=== PATIENT | male | born 2000 | race Caucasian/White ===

== ENCOUNTER 2020-06-30 06:55 | Outpatient (CLI) | payer BC ==
[~2020-06-30] VITALS: Ht 170.2 cm; Wt 79.5 kg
[2020-06-30] MEDS ORDERED: FLUT9.9S NS (13:24)
[2020-06-30] MEDS ORDERED: CETI10TA49 PO (13:24)
[2020-07-02] MEDS ORDERED: ACHD5005 PO (10:05)
== END 2020-06-30 13:53 | disposition home or self-care (01) ==
LOC: PREOP 06:55
PROVIDERS: ATTEND Surgery
DX: Z01.812 Encounter for preprocedural laboratory examination (principal); K40.90 Unilateral inguinal hernia, without obstruction or gangrene, not specified as recurrent

== ENCOUNTER 2020-07-02 07:03 | Day surgery (SDC) | payer BC ==
[~2020-07-02] VITALS: Ht 170.2 cm; Wt 79.5 kg
[2020-07-02] VITALS (12 sets, daily range): BP systolic 96–123; BP diastolic 43–87
[~2020-07-02 07:03] MED LIST: CETI10TA49 PO; FLUT9.9S NS
[2020-07-02] MEDS ORDERED: fentaNYL INJ 100 MCG/2 ML AMP ONE (07:10)
[2020-07-02] MEDS ORDERED: MIDAZOLAM 2 MG/2 ML (VERSED) VIAL ONE (07:11)
[2020-07-02] MEDS ORDERED: ceFAZolin 2 GM IV Premixed 50 ML IV ONE (07:15)
[2020-07-02] MEDS ORDERED: LIDOCAINE/EPI 1%-1:100,000 (XYLOCAINE) 20ML ONE (07:17)
[2020-07-02] MEDS: LACTATED RINGERS 1,000 ML IV PRN ×2 (07:46→09:05)
--- NOTE | 2020-07-02 08:22 | Progress Note-Pre Operative ---
Pre-Operative Progress Note H&P Reviewed The H&P was reviewed, patient examined and no changes noted. Time Seen by Provider: 08:14 Date H&P Reviewed: Jul 02, 2020 Time H&P Reviewed: 08:14 Pre-Operative Diagnosis: right inguinal hernia DAFNE HILL DO Jul 02, 2020 08:22
[2020-07-02] MEDS ORDERED: LIDOCAINE PF 2% 5 ML (XYLOCAINE) VIAL ONE (09:55)
[2020-07-02] MEDS ORDERED: SEVOFLURANE (ULTANE) 15 ML INHAL SOLN ONE ×3 (09:55→09:56)
[2020-07-02] MEDS ORDERED: NEOSTIGMINE 3 MG/3 ML VIAL ONE (09:55)
[2020-07-02] MEDS ORDERED: GLYCOPYRROLATE 0.2 MG/ML (ROBINUL) 2 ML VIAL ONE (09:55)
[2020-07-02] MEDS ORDERED: ONDANSETRON 4 MG/2 ML (SDV) Z0FRAN ONE (09:55)
[2020-07-02] MEDS ORDERED: ROCURONIUM 10 MG/ML 5 ML SYRINGE IV ONE (09:55)
[2020-07-02] MEDS ORDERED: proPOfol 200 MG/20 ML (DIPRIVAN) VIAL IV ONE (09:55)
[2020-07-02] MEDS ORDERED: HYDROmorphone 2 MG/ML VIAL (DILAUDID) ONE (09:56)
--- NOTE | 2020-07-02 10:04 | Progress Note-Post Operative ---
Post-Operative Progess Note Surgeon (s)/Channel Rougher (s) Surgeon DAFNE HILL DO Channel Rougher: Liz Pre-Operative Diagnosis right inguinal hernia Post-Operative Diagnosis same -indirect with small direct component Procedure & Operative Findings Date of Procedure 07/02/20 Procedure Performed/Findings After informed consent was obtained, the patient was brought to the operating room and placed on the operating table in a supine position. He was sterilely prepped and draped in a normal fashion. Local lidocaine was used to infiltrate the skin above the umbilicus. I made an incision with #11 blade, carried down to the skin into subcutaneous tissue and then deepened down the subcutaneous tissue with Bovie electrocautery down to the fascia. Fascia was incised with Bovie electrocautery and bluntly entered the abdomen, swept a finger around, placed 0 Vicryl [id number] suture and placed limited trocar port under direct visualization. Created pneumoperitoneum, able to visualize the hernia and took a picture of this and then placed two 8 mm ports about 10 cm on either side of the midline port using a local lidocaine, 11 blade for stab incision and then advanced the robotic port under direct visualization. Once this was in, I then placed the patient in Trendelenburg and then placed the working instruments, the fenestrated bipolar and the scissors. Looked on the right side and saw an indirect hernia with possibly small direct hernia defect. Pt also noted to have beginninf of indirect and direct inguinal hernias on the left side. Next, I came across the peritoneum approximately 8 cm away from the hernia defect, on the right side going across laterally starting from midline right at median umbilical ligament. I came across laterally all the way out about 18 cm, possibly more and then carefully dissected the visceral peritoneum away and down and then in the midline, went through the parietal side and dissected down to the pubic tubercle, dissecting this down carefully pushing the peritoneum away, I were able to then visualize the pubic tubercle and Hoang's ligament. I went 2 cm posterior and at this point, we then had a critical view of the dissection, able to dissect 2 cm across the midline to the right side, 2 cm posterior to the Hoang's ligament, able to then parietalize the vas deferens and spermatic vessels right at the groove between Hoang's and iliac vein and able to dissect, make sure there was no peritoneum between those two, able to see the indirect hernia space, took a picture of this, looked at the femoral space. There was no femoral hernia. I carefully teased out the indirect hernia sac and could visualize the direct hernia space. Next I looked on the cord and cord structures. There was a small cord lipoma that I was able to reduce as well. I could see the inguinal canal and the indirect space. Next I carried the posterior lateral dissection all the way out and then placed a 12.4 x 17.3 regular Bard 3DMax mesh. It laid in nicely, covered the hernia defect and the rest of the area. It was above the peritoneum, sutured it at the pubic tubercle with a 3-0 Vicryl suture and tied this off. I then placed a suture laterally to hold it in place. Again, this appeared to lay in very nicely. I then brought down the pneumoperitoneum to about 8 mmHg and then started closing the peritoneum. Started laterally and used a 2-0 V-lock barbed suture to start a running stitch to close the peritoneum. This was closed nicely, took a picture of the closure at this point, then removed both needles had switched to a suture tram driver from the scissors. The patient was then placed back supine, removed all ports under direct visualization, allowed pneumoperitoneum to escape and then closed the supraumbilical incision, closing the fascia with 0 Vicryl suture previously placed. Copiously irrigated all incisions and then closed the two small 8 mm incisions with two interrupted 4-0 undyed Monocryl subcuticular stitches and closed the supraumbilical incision with three interrupted undyed Monocryl subcuticular stitch. Area was cleaned and dried. Dermabond was placed. The patient tolerated the procedure. The sponge, instrument and needle counts were correct at the end of the case. Dr. Hill assisted on this case helping to make incisions, close incisions, identify anatomy and pass suture. Anesthesia Type GET Estimated Blood Loss Estimated blood loss (mL): scant Specimens/Packing Specimens Removed none DAFNE HILL DO Jul 02, 2020 10:04
[2020-07-02] MEDS ORDERED: ACHD5005 PO (10:05)
--- NOTE | 2020-07-02 10:06 | Discharge Inst-Surgical ---
Discharge Inst-Surgical Depart Medication/Instructions New, Converted or Re-Newed RX: RX Given to Pt/Family Patient Instructions Follow up Appt: Make appointment for 1 week. [phone] Instructions: No lifting greater than 20 pounds. No strenuous activity. May shower in 24 hours, no tub bath or soaking. Use incentive spirometer at home as directed. No Smoking Skin/Wound Care: May remove bandages in am. You need to leave the Dermabond on incision it will fall off on it's own. Symptoms to Report: Appetite Changes, Extremity Discoloration, Numbness/Tingling, Swelling Increased, Bleeding Excessive, Eyesight Changes, Pain Increased, Urine Color Change, Constipation(Persistent), Fever over 101 degree F, Pain/Pressure in chest, Urinating Difficulty, Cough Up/Vomit Blood, Heart Beat Irreg/Pounding, Pain/Pressure in jaw, Cramps in feet or legs, Lightheadedness, Pain/Pressure in shoulder, Diarrhea(Persistent), Memory Changes Suddenly, Questions/Concerns, Weight gain consecutive days, Dizziness/Fainting, Nausea/Vomiting, Shortness of Breath, Weight gain over 2 pounds If questions or concerns contact your physician Or seek help at emergency department. Activity Activity as Tolerated: Yes Activity Instructions: Avoid Stress to Incision Driving Instructions: No Driving/Refer to Dr. Eason Discharge Diet: No Restrictions Diet After 24 Hours: Clear Liquid if Nauseous If Any Problems/Questions/Issu: Contact Your Physician, Go to Emergency Room Skin/Wound Care Infection Signs and Symptoms: Increased Redness, Foul Odor of Wound, Increased Drainage, Skin Itchy or Has a Rash, Increased Swelling, Temperature Above 101 F Wound Care Comment: heating pad to shoulder or neck for pain Bathing Instructions: Shower Stitches/Reece/Dermabond Dis: Dermabond Ice Pack: Ice On and Off Site (at incision sites as needed for pain) DAFNE HILL DO Jul 02, 2020 10:06
[2020-07-02] MEDS ORDERED: morphine INJ 10 MG/ML 1ML (SYR OR VIAL) ONE (10:45)
[2020-07-02] MEDS ORDERED: ONDANSETRON 4 MG/2 ML (SDV) Z0FRAN IVP PRN (11:00)
[2020-07-02] MEDS ORDERED: HYDROmorphone 2 MG/ML VIAL (DILAUDID) IV ONE (11:00)
[2020-07-02] MEDS ORDERED: morphine INJ 10 MG/ML 1ML (SYR OR VIAL) IVP ONE (11:00)
--- NOTE | 2020-07-02 11:59 | Anesthesia-General Post-Op ---
General Patient Condition Mental Status/LOC: Same as Preop Cardiovascular: Satisfactory Nausea/Vomiting: Absent Respiratory: Satisfactory Pain: Controlled Complications: Absent Post Op Complications Complications None Follow Up Care/Instructions Patient Instructions None needed. Anesthesia/Patient Condition Patient Condition Patient is doing well, no complaints, stable vital signs, no apparent adverse anesthesia problems. EDIE GARG DO Jul 02, 2020 11:59
[2020-07-02] MEDS ORDERED: HYDROcodone/APAP 5 MG/325 MG (LORTAB) TAB ONE (12:53)
[2020-07-02] MEDS ORDERED: HYDROcodone/APAP 5 MG/325 MG (LORTAB) TAB PO ONE (13:00)
== END 2020-07-02 14:02 | disposition home or self-care (01) ==
LOC: SDC 07:03
PROVIDERS: ATTEND Surgery
DX: K40.90 Unilateral inguinal hernia, without obstruction or gangrene, not specified as recurrent (principal); D17.79 Benign lipomatous neoplasm of other sites; J30.2 Other seasonal allergic rhinitis; Z90.89 Acquired absence of other organs; Z98.890 Other specified postprocedural states; Z79.51 Long term (current) use of inhaled steroids; Z79.899 Other long term (current) drug therapy
CPT/HCPCS: 49650; 87081; 94664; C1781